=== PATIENT | female | born 1925 | race Caucasian/White ===

== ENCOUNTER 2017-06-16 08:51 | Day surgery (SDC) | payer OTHER ==
[~2017-06-16] VITALS: Ht 165.1 cm; Wt 90.9 kg
[~2017-06-16 08:51] MED LIST: ALEN5TAB2 PO; AMIO200T42 PO; ASPI325T80 PO; ATEN25TA PO; CETI10CA PO; HYDR25TA6 PO; LEVO150T5 PO; LOVA40TA2 PO; POTA10PI2 PO
[2017-06-16 09:21] VITALS: BP 176/57
[2017-06-16] MEDS ORDERED: OMEP-110 PO (09:53)
[2017-06-16] MEDS ORDERED: MULT-6 PO (09:53)
[2017-06-16] MEDS ORDERED: LIOT5TAB3 PO (09:53)
[2017-06-16] MEDS ORDERED: ASCO1TAB2 PO (09:53)
[2017-06-16] MEDS ORDERED: CRAN500T2 PO (09:53)
[2017-06-16] MEDS ORDERED: ALPR0.254 PO (09:53)
[2017-06-16] MEDS ORDERED: [UNRECOGNIZED DRUG - OTHER] PO (09:53)
[2017-06-16] MEDS ORDERED: DABI150C PO (09:53)
[2017-06-16] MEDS ORDERED: TRIA1CAP3 PO (09:53)
[2017-06-16 10:24] LABS: BLOOD UREA NITROGEN 26 mg/dL (7-18)
== END 2017-06-16 11:07 | disposition home or self-care (01) ==
LOC: CACL 08:51 → EDSTATUS 11:00 → CACL 11:07
PROVIDERS: ATTEND Internal Medicine Cardiovascular Disease
DX: I48.91 Unspecified atrial fibrillation (principal); E03.9 Hypothyroidism, unspecified; E78.5 Hyperlipidemia, unspecified; I10 Essential (primary) hypertension; Z95.0 Presence of cardiac pacemaker
CPT/HCPCS: 36415; 80048; 92960; 93005

== ENCOUNTER → 2017-07-26 | Outpatient (CLI) | payer OTHER ==
[~2017-07-26] MED LIST changes: +ALPR0.254 PO; +ASCO1TAB2 PO; +CRAN500T2 PO; +DABI150C PO; +LIOT5TAB3 PO; +MULT-6 PO; +OMEP-110 PO; +TRIA1CAP3 PO; +[UNRECOGNIZED DRUG - OTHER] PO
== END | disposition home or self-care (01) ==
LOC: CVU 07:38
PROVIDERS: ATTEND Internal Medicine Cardiovascular Disease
DX: I08.2 Rheumatic disorders of both aortic and tricuspid valves (principal); I48.91 Unspecified atrial fibrillation; I86.8 Varicose veins of other specified sites; M71.21 Synovial cyst of popliteal space [Baker], right knee; I10 Essential (primary) hypertension; Z95.0 Presence of cardiac pacemaker
CPT/HCPCS: 93306; 93970